=== PATIENT | female | born 1980 | race Caucasian/White ===

== ENCOUNTER 2017-09-19 09:13 | Outpatient (CLI) | payer OTHER | END 2017-09-20 11:26 | disposition home or self-care (01) | LOC: SMA 09:13 | PROVIDERS: ATTEND Family Medicine | DX: N63.20 Unspecified lump in the left breast, unspecified quadrant (principal); R92.8 Other abnormal and inconclusive findings on diagnostic imaging of breast | CPT/HCPCS: 76642; 77066 ==

== ENCOUNTER 2018-12-26 09:10 | Outpatient (CLI) | payer BC | END 2018-12-26 21:06 | disposition home or self-care (01) | LOC: SMA 09:10 | PROVIDERS: ATTEND Family Medicine | DX: Z12.31 Encounter for screening mammogram for malignant neoplasm of breast (principal) | CPT/HCPCS: 77067 ==

== ENCOUNTER 2020-09-11 14:51 | Outpatient (CLI) | payer BC | END 2020-09-11 16:00 | disposition home or self-care (01) | LOC: SRD 14:51 | PROVIDERS: ATTEND Family Medicine | DX: Z12.31 Encounter for screening mammogram for malignant neoplasm of breast (principal) | CPT/HCPCS: 77067 ==